=== PATIENT | male | born 1995 | race African-American/Black ===

== ENCOUNTER 2018-10-22 19:45 | Emergency (ER) | payer OTHER ==
[~2018-10-22] VITALS: Ht 172.7 cm; Wt 99.8 kg
[~2018-10-22 19:45] MED LIST: NOHOMEMEDICATIONS
[2018-10-22] MEDS ORDERED: MOBIC7.5 MG PO (20:44)
[2018-10-22] MEDS ORDERED: PREDNISONE 20 M20 MG PO (20:44)
[2018-10-22 21:15] VITALS: BP 110/72
== END 2018-10-22 21:15 | disposition home or self-care (01) ==
LOC: ER 19:45
DX: J02.0 Streptococcal pharyngitis (principal); R00.0 Tachycardia, unspecified; R09.81 Nasal congestion

== ENCOUNTER 2019-02-06 10:59 | Emergency (ER) | payer OTHER ==
[~2019-02-06] VITALS: Ht 175.3 cm; Wt 97.5 kg
[~2019-02-06 10:59] MED LIST changes: +MOBIC7.5 MG PO; +PREDNISONE 20 M20 MG PO
[2019-02-06 11:51] VITALS: BP 149/99
== END 2019-02-06 13:18 | disposition home or self-care (01) ==
LOC: ER 10:59
DX: Z53.21 Procedure and treatment not carried out due to patient leaving prior to being seen by health care provider (principal)